=== PATIENT | female | born 1950 | race Caucasian/White ===

== ENCOUNTER 2018-12-11 14:07 | Emergency (ER) | payer OTHER ==
[2018-12-11] MEDS: KETOROLAC 30 MG INJ IM (16:48)
== END 2018-12-11 17:48 | disposition home or self-care (01) ==
LOC: FTE 17:48
DX: M25.511 Pain in right shoulder (principal); I10 Essential (primary) hypertension; E11.9 Type 2 diabetes mellitus without complications
CPT/HCPCS: 73030; 73030-RT; 96372; 99284-25